=== PATIENT | female | born 1975 | race Caucasian/White ===

== ENCOUNTER 2017-10-19 20:06 | Emergency (ER) | payer MEDICAID ==
[~2017-10-19] VITALS: Ht 157.5 cm; Wt 67.3 kg
[2017-10-19 20:10] VITALS: Ht 157.5 cm; Wt 67.3 kg
[2017-10-19 21:34] LABS: BASOPHILS % 0.1 % (0.0-2.0); EOSINOPHILS # 0.2 10^3/ul (0.0-0.5); EOSINOPHILS % 2.3 % (0.0-7.0); HEMATOCRIT 39.6 % (37.0-47.0); HEMOGLOBIN 13.6 g/dl (12.0-16.0); LYMPHOCYTES # 2.2 10^3/ul (0.8-2.9); LYMPHOCYTES % 30.1 % (15.0-51.0); MEAN CORPUSCULAR HEMOGLOBIN 28.3 pg (29.0-33.0); MEAN CORPUSCULAR HGB CONC 34.3 g/dl (32.0-37.0); MEAN CORPUSCULAR VOLUME 82.3 fl (82.0-101.0); MONOCYTE # 0.5 10^3/ul (0.3-0.9); MONOCYTES % 6.5 % (0.0-11.0); NEUTROPHIL # 4.4 10^3/ul (1.6-7.5); NEUTROPHILS % 60.7 % (39.0-77.0); PLATELET COUNT 276 10^3/UL (140-415); RED BLOOD COUNT 4.81 10^6/ul (4.20-5.40); RED CELL DISTRIBUTION WIDTH 12.6 % (11.5-14.5); WHITE BLOOD COUNT 7.3 10^3/ul (4.8-10.8)
[2017-10-19 21:57] LABS: ADD UMIC YES; UR ASCORBIC ACID NEGATIVE (NEGATIVE); UR BACTERIA FEW /HPF (NONE SEEN); UR BILIRUBIN (Dip) NEGATIVE (NEGATIVE); UR BLOOD (Dip) 1+ mg/dL (NEGATIVE); UR CLARITY CLEAR (CLEAR); UR COLOR YELLOW (YELLOW); UR GLUCOSE (Dip) NEGATIVE (NEGATIVE); UR KETONES (Dip) NEGATIVE (NEGATIVE); UR LEUKOCYTE ESTERASE (Dip) TRACE Leu/ul (NEGATIVE); UR MUCUS FEW /HPF (NONE SEEN); UR NITRITE (Dip) NEGATIVE (NEGATIVE); UR RBC 2 /HPF (0-5); UR SQUAMOUS EPITHELIAL CELL FEW /HPF (FEW); UR TOTAL PROTEIN (Dip) NEGATIVE (NEGATIVE); UR UROBILINOGEN (Dip) NEGATIVE (NEGATIVE)
--- NOTE | 2017-10-19 23:52 | RADRPT ---
PROCEDURE: US OB. CLINICAL INDICATION: No cardiac activity identified on ultrasound at the clinic yesterday. TECHNIQUE: Transabdominal and transvaginal sonographic evaluation of the pelvis using berry scale an d color Doppler imaging was performed. COMPARISON: None available. FINDINGS: There is a single intrauterine with a pole identified. The crown-rump length equals 0.97 cm. The estimated gestational age equals 7 weeks 0 days by ultrasound criteria. No cardiac activity is identified. Uterus: 10.1 x 7.0 x 8.7 cm Right ovary: Not identified. Left ovary: Not identified. No adnexal masses or free fluid. IMPRESSION: 1. Single intrauterine with an estimated gestational age of 7 weeks 0 days by ultrasound criteria and no cardiac activity, highly concerning for failed early . Short interval follow-up ultrasound is recommended. RPTAT: HLBP .Landry Gonzalez MD, Date Time Electronically viewed and signed by .Landry Gonzalez MD, MD on 10/19/2017 23:52 .P/
[2017-10-20] MEDS ORDERED: CEPH-443 PO (00:40)
--- NOTE | 2017-10-20 03:25 | ERD ---
ER Documentation Chief Complaint Chief Complaint abdominal pain x 2 days. states 8 weeks . denies vb HPI 42-year-old female, A1 patient with no significant past medical history is currently and is experiencing slight pelvic pain Reports that she is here for further evaluation because they did not detect any heart tones on ultrasound yesterday. Reports that she feels concerned. States that her last menstruation was on August 22, 2017. States that her CARBON DIOXIDE OPERATOR is Dr. Lopez. Denies any, chills vaginal bleeding, vaginal discharge, nausea, vomiting, diarrhea, chest pain, shortness of breath. ROS All systems reviewed and are negative except as per history of present illness. Medications Home Meds Active Scripts Acetaminophen* (Tylophen*) 500 Mg Capsule, 1 CAP PO Q6H Y for PAIN AND OR ELEVATED TEMP, #30 CAP Prov:KEIKO NAVARRETE PA-C 10/26/17 Hydrocodone/Acetaminophen (Goode 5-325 Tablet) 1 Each Tablet, 1 TAB PO Q6H Y for PAIN, #12 TAB Prov:KEIKO NAVARRETE PA-C 10/26/17 Cephalexin* (Keflex*) 500 Mg Capsule, 500 MG PO QID for 7 Days, CAP Prov:DELANO FERNANDES PA-C 10/20/17 Allergies Allergies: Coded Allergies: No Known Drug Allergies (Verified Allergy, Unknown, 10/19/17) PMhx/Soc Medical and Surgical Hx: pt denies Medical Hx, pt denies Surgical Hx Hx Alcohol Use: No Hx Substance Use: No Hx Tobacco Use: No Smoking Status: Never smoker Physical Exam Vitals Vital Signs Date Time Temp Pulse Resp B/P Pulse Ox O2 Delivery O2 Flow Rate FiO2 10/19/17 20:10 97.9 83 20 123/68 99 Physical Exam Const: Orv-lko-vdgxrustu, well-nourished. In no acute distress. Head: Atraumatic, normocephalic Eyes: Normal Conjunctiva without injection. No purulent discharge. ENT: Normal external ear, nose. Moist oropharynx without tonsillar exudates. Non -erythematous pharynx. Uvula midline. No drooling. No trismus. Neck: No cervical midline tenderness. Full range of motion. No meningismus. No cervical lymphadenopathy. No JVD. Resp: Clear to auscultation bilaterally. No wheezing, rhonchi, rales, or crackles. No accessory muscle use. No retractions. Cardio: Regular rate and rhythm. No murmurs, rubs or gallops. Abd: Soft, nontender, non distended. Normal bowel sounds. No palpable masses. No rebound tenderness. No guarding. Negative McBurney's point. Negative psoas sign. Negative obturator sign. Skin: No petechiae or rashes Back: No midline tenderness. No CVA tenderness. Ext: No cyanosis, or edema. Neur: Awake and alert. Normal gait. Normal coordination. Psych: Normal Mood and Affect Results 24 hrs Laboratory Tests Test 10/19/17 21:00 10/19/17 21:18 Urine Color YELLOW Urine Clarity CLEAR Urine pH 5.0 Urine Specific [place] 1.020 Urine Ketones NEGATIVEmg/dL Urine Nitrite NEGATIVEmg/dL Urine Bilirubin NEGATIVEmg/dL Urine Urobilinogen NEGATIVEmg/dL Urine Leukocyte Esterase TRACELeu/ul Urine Microscopic RBC 2/HPF Urine Microscopic WBC 3/HPF Urine Squamous Epithelial Cells FEW/HPF Urine Bacteria FEW/HPF Urine Mucus FEW/HPF Urine Hemoglobin 1+mg/dL Urine Glucose NEGATIVEmg/dL Urine Total Protein NEGATIVEmg/dl White Blood Count 7.310^3/ul Red Blood Count 4.8110^6/ul Hemoglobin 13.6g/dl Hematocrit 39.6% Mean Corpuscular Volume 82.3fl Mean Corpuscular Hemoglobin 28.3pg Mean Corpuscular Hemoglobin Concent 34.3g/dl Red Cell Distribution Width 12.6% Platelet Count 29807^3/UL Mean Platelet Volume 10.0fl Neutrophils % 60.7% Lymphocytes % 30.1% Monocytes % 6.5% Eosinophils % 2.3% Basophils % 0.1% Nucleated Red Blood Cells % 0.0/100WBC Neutrophils # 4.410^3/ul Lymphocytes # 2.210^3/ul Monocytes # 0.510^3/ul Eosinophils # 0.210^3/ul Basophils # 0.010^3/ul Nucleated Red Blood Cells # 0.010^3/ul Beta HCG, Quantitative 86633.0mIU/ml Procedures/MDM 42-year-old female patient with no significant past medical history presents to the ED complaining of pelvic pain and absence of heart tones on her ultrasound checked yesterday. Patient is afebrile nontoxic appearing. Patient has normal vital signs. An ultrasound, beta-hCG, CBC, type and RH, UA was ordered to evaluate patient. CBC: No evidence of severe infection or anemia Urine: No elevation in nitrites, trace leukocyte esterase, 1+ hematuria. Rh: O positive. No indication for Rhogam at this time. beta Hc PROCEDURE: US OB. CLINICAL INDICATION: No cardiac activity identified on ultrasound at the clinic yesterday. TECHNIQUE: Transabdominal and transvaginal sonographic evaluation of the pelvis using berry scale and color Doppler imaging was performed. COMPARISON: None available. FINDINGS: There is a single intrauterine with a pole identified. The crown-rump length equals 0.97 cm. The estimated gestational age equals 7 weeks 0 days by ultrasound criteria. No cardiac activity is identified. Uterus: 10.1 x 7.0 x 8.7 cm Right ovary: Not identified. Left ovary: Not identified. No adnexal masses or free fluid. IMPRESSION: 1. Single intrauterine with an estimated gestational age of 7 weeks 0 days by ultrasound criteria and no cardiac activity, highly concerning for failed early . Short interval follow-up ultrasound is recommended. PROCEDURE: US OB. CLINICAL INDICATION: No cardiac activity identified on ultrasound at the clinic yesterday. TECHNIQUE: Transabdominal and transvaginal sonographic evaluation of the pelvis using berry scale and color Doppler imaging was performed. COMPARISON: None available. FINDINGS: There is a single intrauterine with a pole identified. The crown-rump length equals 0.97 cm. The estimated gestational age equals 7 weeks 0 days by ultrasound criteria. No cardiac activity is identified. Uterus: 10.1 x 7.0 x 8.7 cm Right ovary: Not identified. Left ovary: Not identified. No adnexal masses or free fluid. IMPRESSION: 1. Single intrauterine with an estimated gestational age of 7 weeks 0 days by ultrasound criteria and no cardiac activity, highly concerning for failed early . Short interval follow-up ultrasound is recommended. She could likely have a early failed there are no heart tones noted. Patient will be treated for a UTI. She was instructed to follow-up with her CARB[employer] DIOXIDE OPERATOR to obtain repeat ultrasound and repeat beta-hCG in 2 days. Low suspicion for symptomatic anemia, ectopic , sepsis, PID, appendicitis, ovarian torsion, tubo-ovarian abscess, surgical abdomen, or other emergent conditions. Patient was educated that there is a risk for threatened . Discharge medications: Keflex Patient to follow up with CARBON DIOXIDE OPERATOR in 2 days for further evaluation and treatment. Patient is to return sooner to the ED for any worsening symptoms. Patient's questions were answered. Patient understood and agreed with discharge plan. Departure Diagnosis: Primary Impression: Absent heart tones Condition: Stable Patient Instructions: Urinary Tract Infections in Women, Possible Miscarriage ( Threatened ) Referrals: [facility] YOU HAVE RECEIVED A MEDICAL SCREENING EXAM AND THE RESULTS INDICATE THAT YOU DO NOT HAVE A CONDITION THAT REQUIRES URGENT TREATMENT IN THE EMERGENCY DEPARTMENT. FURTHER EVALUATION AND TREATMENT OF YOUR CONDITION CAN WAIT UNTIL YOU ARE SEEN IN YOUR DOCTORS OFFICE WITHIN THE NEXT 1-2 DAYS. IT IS YOUR RESPONSIBILITY TO MAKE AN APPOINTMENT FOR FOLOW-UP CARE. IF YOU HAVE A PRIMARY DOCTOR --you should call your primary doctor and schedule an appointment IF YOU DO NOT HAVE A PRIMARY DOCTOR YOU CAN CALL OUR PHYSICIAN REFERRAL HOTLINE AT IF YOU CAN NOT AFFORD TO SEE A PHYSICIAN YOU CAN CHOSE FROM THE FOLLOWING [facility] [address] [facility]. [facility] [address] [facility]. [facility] [address] [facility] [address] [facility] [address] [facility]. [facility]. [address] [facility]. [facility] YOU HAVE RECEIVED A MEDICAL SCREENING EXAM AND THE RESULTS INDICATE THAT YOU DO NOT HAVE A CONDITION THAT REQUIRES URGENT TREATMENT IN THE EMERGENCY DEPARTMENT. FURTHER EVALUATION AND TREATMENT OF YOUR CONDITION CAN WAIT UNTIL YOU ARE SEEN IN YOUR DOCTORS OFFICE WITHIN THE NEXT 1-2 DAYS. IT IS YOUR RESPONSIBILITY TO MAKE AN APPOINTMENT FOR FOLOW-UP CARE. IF YOU HAVE A PRIMARY DOCTOR --you should call your primary doctor and schedule and appointment IF YOU DO NOT HAVE A PRIMARY DOCTOR YOU CAN CALL OUR PHYSICIAN REFERRAL HOTLINE AT . IF YOU CAN NOT AFFORD TO SEE A PHYSICIAN YOU CAN CHOSE FROM THE FOLLOWING [facility] INSTITUTIONS: [facility] [address] [place] [address] [facility] [address] [place] [address] [facility] [address] [place] [address] [facility] URGENT CARE/SPECIALTIES Additional Instructions: seguimiento con CARBON DIOXIDE OPERATOR en 2 manley para la evaluacin y el tratamiento adicionales. Repita el trabajo de boris beta de la hormona de HCG y ultrasonido con CARBON DIOXIDE OPERATOR. Vuelva a urgencias para cualquier sangrado vaginal, fiebre, dolor abdominal, v mitos, etc. DELANO FERNANDES PA-C Oct 20, 2017 03:25
== END 2017-10-20 00:48 | disposition home or self-care (01) ==
LOC: FTE 20:06
DX: O36.8910 Maternal care for other specified fetal problems, first trimester, not applicable or unspecified (principal); R10.2 Pelvic and perineal pain; Z3A.01 Less than 8 weeks gestation of pregnancy
CPT/HCPCS: 36415; 76801; 76817; 81001; 84702; 85025; 86900; 86901; Z7502

== ENCOUNTER 2017-10-25 05:02 | Emergency (ER) | payer MEDICAID ==
[~2017-10-25] VITALS: Ht 152.4 cm; Wt 65.7 kg
[~2017-10-25 05:02] MED LIST: CEPH-443 PO
[2017-10-25 05:05] VITALS: Ht 152.4 cm; Wt 65.7 kg
[2017-10-25] MEDS ORDERED: SOD CHLORIDE 0.9% 1,000 ML IV STA (05:26)
[2017-10-25 06:49] LABS: BASOPHILS % 0.3 % (0.0-2.0); EOSINOPHILS # 0.2 10^3/ul (0.0-0.5); EOSINOPHILS % 2.9 % (0.0-7.0); HEMATOCRIT 40.7 % (37.0-47.0); HEMOGLOBIN 13.8 g/dl (12.0-16.0); LYMPHOCYTES # 1.6 10^3/ul (0.8-2.9); LYMPHOCYTES % 24.4 % (15.0-51.0); MEAN CORPUSCULAR HEMOGLOBIN 27.9 pg (29.0-33.0); MEAN CORPUSCULAR HGB CONC 33.9 g/dl (32.0-37.0); MEAN CORPUSCULAR VOLUME 82.2 fl (82.0-101.0); MEAN PLATELET VOLUME 9.9 fl (7.4-10.4); MONOCYTE # 0.4 10^3/ul (0.3-0.9); MONOCYTES % 5.3 % (0.0-11.0); NEUTROPHIL # 4.4 10^3/ul (1.6-7.5); NEUTROPHILS % 66.9 % (39.0-77.0); PLATELET COUNT 264 10^3/UL (140-415); RED BLOOD COUNT 4.95 10^6/ul (4.20-5.40); RED CELL DISTRIBUTION WIDTH 12.7 % (11.5-14.5); WHITE BLOOD COUNT 6.6 10^3/ul (4.8-10.8)
[2017-10-25 06:53] LABS: ADD UMIC YES; UR ASCORBIC ACID NEGATIVE (NEGATIVE); UR BILIRUBIN (Dip) NEGATIVE (NEGATIVE); UR BLOOD (Dip) 3+ mg/dL (NEGATIVE); UR CLARITY SLIGHTLY CLOUDY (CLEAR); UR COLOR YELLOW (YELLOW); UR GLUCOSE (Dip) NEGATIVE (NEGATIVE); UR KETONES (Dip) NEGATIVE (NEGATIVE); UR LEUKOCYTE ESTERASE (Dip) 1+ Leu/ul (NEGATIVE); UR NITRITE (Dip) NEGATIVE (NEGATIVE); UR RBC 1 /HPF (0-5); UR SPECIFIC GRAVITY (Dip) 1.021 (1.003-1.030); UR SQUAMOUS EPITHELIAL CELL MODERATE /HPF (FEW); UR TOTAL PROTEIN (Dip) NEGATIVE (NEGATIVE); UR UROBILINOGEN (Dip) NEGATIVE (NEGATIVE)
--- NOTE | 2017-10-25 06:54 | RADRPT ---
PROCEDURE: US OB. CLINICAL INDICATION: Vaginal bleeding in . TECHNIQUE: Transabdominal and endovaginal imaging of the gravid uterus is available for review COMPARISON: US 10/19/2017; US PELVIS 10/19/2017 FINDINGS: There is a single intrauterine with a crown-rump length of 1.06 cm, giving an estimated ge stational age of 7 weeks 0 days by ultrasound criteria. No heart tones are detected. No subc horionic hemorrhage is identified. The ovaries are unremarkable. IMPRESSION: Single intrauterine with an estimated gestational age of 7 weeks 0 days by ultrasound crit eria. No heart tones are detected. There has been no interval growth when compared to the ross or examination. Findings are compatible with early failed . RPTAT: HH .Lilo Pearson MD, MD Date Time Electronically viewed and signed by .Lilo Pearson MD, on 10/25/2017 05:50 .G/
[2017-10-25 07:18] LABS: INR 0.97
[2017-10-25 07:19] LABS: PARTIAL THROMBOPLASTIN TIME 31.2 Sec (25.0-35.0)
--- NOTE | 2017-10-25 07:42 | ERD ---
ER Documentation Chief Complaint Chief Complaint c/o VB x 1 day. (+) 8 weeks . (+) nausea. HPI This 42-year-old female presents with vaginal bleeding for last day. She has minimal cramps. She denies clots or tissue. She was seen 1 week ago for some mild pain noted to have a 7 week without appreciable heart tones. She has a appointment with her OB today. She denies any fevers, vomiting, shortness of breath. ROS All systems reviewed and are negative except as per history of present illness. Medications Home Meds Active Scripts Cephalexin* (Keflex*) 500 Mg Capsule, 500 MG PO QID for 7 Days, CAP Prov:DELANO FERNANDES PA-C 10/20/17 Allergies Allergies: Coded Allergies: No Known Drug Allergies (Verified Allergy, Unknown, 10/19/17) PMhx/Soc Medical and Surgical Hx: pt denies Medical Hx, pt denies Surgical Hx Hx Alcohol Use: No Hx Substance Use: No Hx Tobacco Use: No Smoking Status: Never smoker Physical Exam Vitals Vital Signs Date Time Temp Pulse Resp B/P Pulse Ox O2 Delivery O2 Flow Rate FiO2 10/25/17 05:05 97.6 68 18 107/69 98 Physical Exam Const: [] Alert, ovj-yzd-cigdxmzcr. Head: Atraumatic Eyes: Normal Conjunctiva ENT: Normal External Ears, Nose and Mouth. Neck: Full range of motion..~ No meningismus. Resp: Clear to auscultation bilaterally Cardio: Regular rate and rhythm, no murmurs Abd: Soft, non tender, non distended. Normal bowel sounds Skin: No petechiae or rashes Back: No midline or flank tenderness Ext: No cyanosis, or edema Neur: Awake and alert Psych: Normal Mood and Affect Result Diagram: 10/25/17 0558 Results 24 hrs Laboratory Tests Test 10/25/17 05:33 10/25/17 05:58 Urine Color YELLOW Urine Clarity SLIGHTLY CLOUDY Urine pH 7.0 Urine Specific [place] 1.021 Urine Ketones NEGATIVEmg/dL Urine Nitrite NEGATIVEmg/dL Urine Bilirubin NEGATIVEmg/dL Urine Urobilinogen NEGATIVEmg/dL Urine Leukocyte Esterase 1+Cruzito/ul Urine Microscopic RBC 1/HPF Urine Microscopic WBC 6/HPF Urine Squamous Epithelial Cells MODERATE/HPF Urine Hemoglobin 3+mg/dL Urine Glucose NEGATIVEmg/dL Urine Total Protein NEGATIVEmg/dl White Blood Count 6.610^3/ul Red Blood Count 4.9510^6/ul Hemoglobin 13.8g/dl Hematocrit 40.7% Mean Corpuscular Volume 82.2fl Mean Corpuscular Hemoglobin 27.9pg Mean Corpuscular Hemoglobin Concent 33.9g/dl Red Cell Distribution Width 12.7% Platelet Count 61742^3/UL Mean Platelet Volume 9.9fl Neutrophils % 66.9% Lymphocytes % 24.4% Monocytes % 5.3% Eosinophils % 2.9% Basophils % 0.3% Nucleated Red Blood Cells % 0.0/100WBC Neutrophils # 4.410^3/ul Lymphocytes # 1.610^3/ul Monocytes # 0.410^3/ul Eosinophils # 0.210^3/ul Basophils # 0.010^3/ul Nucleated Red Blood Cells # 0.010^3/ul Prothrombin Time 13.0Sec Prothrombin Time Ratio 1.0 INR International Normalized Ratio 0.97 Activated Partial Thromboplast Time 31.2Sec Beta HCG, Quantitative 04069.0mIU/ml Current Medications Medications (Trade) Dose Ordered Sig/Sharmila Route PRN Reason Start Time Stop Time Status Last Admin Dose Admin Sodium Chloride (NS) 1,000 ml @ 1,000 mls/hr Q1H STAT IV 10/25/17 05:26 10/25/17 06:25 DC 10/25/17 06:09 Procedures/MDM Patient is Rh+. Quantitative hCG is presently 12,000 which is decreased from 1 week ago. Urine shows no significant acute findings. Pelvic ultrasound shows 7 week intrauterine without appreciable heart tones and no interval growth in the last week since prior ultrasound. Patient has signs and symptoms of demise or missed . She has good OB follow-up today. She will be discharged home with copies of her reports instructions to keep her appointment today. She should otherwise return for fevers, vomiting, worsening pain, new worsening symptoms or primary care doctor as directed today. Is no signs of ectopic , or signs to suggest appendicitis, tubo-ovarian abscess, additional emergent causes of lower abdominal pain. Departure Diagnosis: Primary Impression: Vaginal bleeding in patient at less than 20 weeks ges... Additional Impression: Absent heart tones Condition: Stable Patient Instructions: Bleeding During Early , Missed Miscarriage Additional Instructions: daniel rand doctor hoy,or regresa para mas o nueva simptomas. FAWAD RAJAN MD Oct 25, 2017 07:42
[2017-10-25 08:00] VITALS: BP 112/66; PULSE 68; RESP 20; TEMP 98
[2017-10-26] MEDS ORDERED: ACET500C5 PO (13:11)
[2017-10-26] MEDS ORDERED: HYDR-906 PO (13:11)
== END 2017-10-25 08:02 | disposition home or self-care (01) ==
LOC: FTE 05:02
DX: O20.9 Hemorrhage in early pregnancy, unspecified (principal); O35.8XX0 Maternal care for other (suspected) fetal abnormality and damage, not applicable or unspecified; Z3A.01 Less than 8 weeks gestation of pregnancy
CPT/HCPCS: 36415; 76801; 76817; 81001; 84702; 85025; 85610; 85730; 86900; 86901; J7030; Z7502

== ENCOUNTER 2017-10-25 10:17 | Emergency (ER) | payer MEDICAID ==
[~2017-10-25] VITALS: Ht 172.7 cm; Wt 66.5 kg
[2017-10-25 10:21] VITALS: Ht 172.7 cm; Wt 66.5 kg
--- NOTE | 2017-10-25 10:59 | ERD ---
ER Documentation Chief Complaint Chief Complaint Sent from OB to HPI This 42-year-old female presents with history of confirmed missed of 7 weeks with 2 visits over the last week.. She was seen by me earlier today for some spotting without hemorrhaging or significant pain or fevers. I referred her back to her care provider covered by [employer]icha for scheduling of elective D&C. Patient states they referred her to other clinics to schedule a D &C. They called those clinics and were apparently told they do not do the procedure were or they are closed. She returns here to the ER for further information to resolve her situation. She continues to have intermittent spotting without hemorrhaging, clots, tissue, or significant pain and no fevers. ROS All systems reviewed and are negative except as per history of present illness. Medications Home Meds Active Scripts Cephalexin* (Keflex*) 500 Mg Capsule, 500 MG PO QID for 7 Days, CAP Prov:DELANO FERNANDES-Ira 10/20/17 Allergies Allergies: Coded Allergies: No Known Drug Allergies (Verified Allergy, Unknown, 10/19/17) PMhx/Soc Hx Alcohol Use: No Hx Substance Use: No Hx Tobacco Use: No Physical Exam Vitals Vital Signs Date Time Temp Pulse Resp B/P Pulse Ox O2 Delivery O2 Flow Rate FiO2 10/25/17 10:21 98.9 73 20 134/61 97 Physical Exam Const: [] Head: Atraumatic Eyes: Normal Conjunctiva ENT: Normal External Ears, Nose and Mouth. Neck: Full range of motion..~ No meningismus. Resp: Clear to auscultation bilaterally Cardio: Regular rate and rhythm, no murmurs Abd: Soft, non tender, non distended. Normal bowel sounds Skin: No petechiae or rashes Back: No midline or flank tenderness Ext: No cyanosis, or edema Neur: Awake and alert Psych: Normal Mood and Affect Procedures/MDM Call was placed to her clinics supervising OB provider Dr. holcomb. He confirmed that he can do the D&C at her care clinic. I called her clinic again who is in contact with the supervising OB provider. They will contact the patient to schedule a D&C at her original care provider. Patient was stable and amatory throughout the ED course without evidence of septic , hemorrhaging, cardiovascular compromise, additional complications of her missed . Patient was advised to return for heavy bleeding, dizziness, syncope, fevers, new or worsening symptoms. Departure Diagnosis: Primary Impression: Missed Additional Impression: Absent heart tones Condition: Stable Patient Instructions: Missed Miscarriage Additional Instructions: I have spoken with your OB provider. Clinic should be contact you to schedule procedure. Recheck for worsening bleeding, fainting, pain, fevers otherwise with clinic. FAWAD RAJAN MD Oct 25, 2017 10:59
[2017-10-26] MEDS ORDERED: HYDR-906 PO (13:11)
[2017-10-26] MEDS ORDERED: ACET500C5 PO (13:11)
== END 2017-10-25 11:07 | disposition home or self-care (01) ==
LOC: FTE 10:17
DX: O02.1 Missed abortion (principal)
CPT/HCPCS: 99282

== ENCOUNTER 2017-10-26 09:57 | Emergency (ER) | payer MEDICAID ==
[~2017-10-26] VITALS: Ht 160 cm; Wt 66.0 kg
[2017-10-26 10:02] VITALS: Ht 160 cm; Wt 66.0 kg
[2017-10-26] MEDS ORDERED: HYDROCODONE/APAP (5/325) TAB PO ONE (11:00)
[2017-10-26 11:16] LABS: BASOPHILS % 0.2 % (0.0-2.0); EOSINOPHILS # 0.1 10^3/ul (0.0-0.5); HEMATOCRIT 39.6 % (37.0-47.0); HEMOGLOBIN 13.3 g/dl (12.0-16.0); LYMPHOCYTES # 1.8 10^3/ul (0.8-2.9); LYMPHOCYTES % 14.4 % (15.0-51.0); MEAN CORPUSCULAR HEMOGLOBIN 27.7 pg (29.0-33.0); MEAN CORPUSCULAR HGB CONC 33.6 g/dl (32.0-37.0); MEAN CORPUSCULAR VOLUME 82.3 fl (82.0-101.0); MEAN PLATELET VOLUME 9.6 fl (7.4-10.4); MONOCYTE # 0.7 10^3/ul (0.3-0.9); MONOCYTES % 5.2 % (0.0-11.0); PLATELET COUNT 258 10^3/UL (140-415); RED BLOOD COUNT 4.81 10^6/ul (4.20-5.40); RED CELL DISTRIBUTION WIDTH 12.7 % (11.5-14.5); WHITE BLOOD COUNT 12.6 10^3/ul (4.8-10.8)
--- NOTE | 2017-10-26 11:40 | RADRPT ---
PROCEDURE: US Pelvis. CLINICAL INDICATION: Pelvic pain, vaginal bleeding TECHNIQUE: Multiple sonographic images of the pelvis were obtained utilizing a transabdominal and endovaginal technique. The images were reviewed on a PACS workstation. COMPARISON: October 25, 2017 FINDINGS: The uterus is anteverted and measures 11 x 7.4 x 6 cm. The previously seen intrauterine is no longer present, and is compatible with a spontaneous . There is no evidence for free flu id. The right ovary has a normal echotexture and measures 2.4 x 1.5 x 1.3 cm . The left ovary was n ot visualized. There are no findings of ectopic . No adnexal masses are noted. IMPRESSION: Unremarkable pelvic ultrasound. Previously seen intrauterine is no longer present, and is compatible with spontaneous . No findings of ectopic . No findings of retained prod ucts of conception. RPTAT: EE .Desiree Silvestre MD, MD Date Time Electronically viewed and signed by .Desiree Silvestre MD, on 10/26/2017 11:40 .F/
--- NOTE | 2017-10-26 12:24 | ERD ---
ER Documentation Chief Complaint Chief Complaint vag bleed since yesterday , 8 weeks preg HPI This 42-year-old female who presents the emergency department today complaining of vaginal bleeding and passing clots and pelvic pain. States she was seen here yesterday. States she has not taken a medication for pain. States that the pain is worse. Denies any fevers or chills, dysuria. ROS All systems reviewed and are negative except as per history of present illness. Medications Home Meds Active Scripts Acetaminophen* (Tylophen*) 500 Mg Capsule, 1 CAP PO Q6H Y for PAIN AND OR ELEVATED TEMP, #30 CAP Prov:KEIKO NAVARRETE PA-C 10/26/17 Hydrocodone/Acetaminophen ([place] 5-325 Tablet) 1 Each Tablet, 1 TAB PO Q6H Y for PAIN, #12 TAB Prov:KEIKO NAVARRETE PA-C 10/26/17 Cephalexin* (Keflex*) 500 Mg Capsule, 500 MG PO QID for 7 Days, CAP Prov:DELANO FERNANDES PA-C 10/20/17 Allergies Allergies: Coded Allergies: No Known Drug Allergies (Verified Allergy, Unknown, 10/19/17) PMhx/Soc Hx Alcohol Use: No Hx Substance Use: No Hx Tobacco Use: No Physical Exam Vitals Vital Signs Date Time Temp Pulse Resp B/P Pulse Ox O2 Delivery O2 Flow Rate FiO2 10/26/17 10:02 97.7 98 18 133/63 96 Physical Exam Const: sitting in wheelchair, NAD Head: Atraumatic Eyes: Normal Conjunctiva ENT: Normal External Ears, Nose and Mouth. Neck: Full range of motion..~ No meningismus. Resp: Clear to auscultation bilaterally Cardio: Regular rate and rhythm, no murmurs Abd: Soft, lower pelvic pain non distended. Normal bowel sounds. NO tenderness at McBurneys : Pelvic Exam with multiple clots of blood that were removed. Cervix slightly open. Skin: No petechiae or rashes Back: No midline or flank tenderness Ext: No cyanosis, or edema Neur: Awake and alert Psych: Normal Mood and Affect Result Diagram: 10/26/17 1106 Results 24 hrs Laboratory Tests Test 10/26/17 11:06 White Blood Count 12.610^3/ul Red Blood Count 4.8110^6/ul Hemoglobin 13.3g/dl Hematocrit 39.6% Mean Corpuscular Volume 82.3fl Mean Corpuscular Hemoglobin 27.7pg Mean Corpuscular Hemoglobin Concent 33.6g/dl Red Cell Distribution Width 12.7% Platelet Count 84664^3/UL Mean Platelet Volume 9.6fl Neutrophils % 79.0% Lymphocytes % 14.4% Monocytes % 5.2% Eosinophils % 1.0% Basophils % 0.2% Nucleated Red Blood Cells % 0.0/100WBC Neutrophils # 10.010^3/ul Lymphocytes # 1.810^3/ul Monocytes # 0.710^3/ul Eosinophils # 0.110^3/ul Basophils # 0.010^3/ul Nucleated Red Blood Cells # 0.010^3/ul Beta HCG, Quantitative 6983.8mIU/ml Current Medications Medications (Trade) Dose Ordered Sig/Sharmila Route PRN Reason Start Time Stop Time Status Last Admin Dose Admin Acetaminophen/ Hydrocodone Bitart ([place] (5/325)) 1 tab ONCE ONCE PO 10/26/17 11:00 10/26/17 11:01 DC 10/26/17 11:11 DIAGNOSTIC IMAGING REPORT Patient: YENNY VILA : 1975 Age: 42 Sex: F MR #: [id number] DOS: 10/26/17 1046 Ordering MD: KEIKO NAVARRETE PA-C Location: [facility] Room/Bed: PROCEDURE: US Pelvis. CLINICAL INDICATION: Pelvic pain, vaginal bleeding TECHNIQUE: Multiple sonographic images of the pelvis were obtained utilizing a transabdominal and endovaginal technique. The images were reviewed on a PACS workstation. COMPARISON: October 25, 2017 FINDINGS: The uterus is anteverted and measures 11 x 7.4 x 6 cm. The previously seen intrauterine is no longer present, and is compatible with a spontaneous . There is no evidence for free fluid. The right ovary has a normal echotexture and measures 2.4 x 1.5 x 1.3 cm . The left ovary was not visualized. There are no findings of ectopic . No adnexal masses are noted. IMPRESSION: Unremarkable pelvic ultrasound. Previously seen intrauterine is no longer present, and is compatible with spontaneous . No findings of ectopic . No findings of retained products of conception. RPTAT: EE .Desiree Silvestre MD, Date Time Electronically viewed and signed by .Desiree Silvestre MD, on 10/26/2017 11:40 .F/ CC: KEIKO NAVARRETE PA-C Procedures/MDM This 42-year-old female who presents the emergency department today complaining of vaginal bleeding. Patient had indicated that she was approximately 8 weeks . Upon review of patient's medical record she was seen here 2 times yesterday and once earlier in the week same symptoms. Patient was to have a follow-up at her clinic with Dr. Lopez for a D&C. Given that she returned today because she has passing a lot of clots and has a lot of pain. Patient did not take any medication for pain at home because "she does not like taking medication. Patient complains I did repeat patient's beta quant and ultrasound and CBC CBC shows a mildly elevated white blood cell count of 12.6 possibly stress reaction. Patient is afebrile and otherwise well-appearing. I have suspicion for sepsis, septic . Hemoglobin is stable at 13.3. She is not anemic. Platelets are within normal limits. Quant hCG is 6983.8. This is down yesterday from 12,000 Ultrasound shows an unremarkable pelvic ultrasound. The previously seen intrauterine is no longer present and compatible with a spontaneous . There is no evidence for free fluid. There are no findings of ectopic . There are no adnexal masses. No findings of retained products of conception. Explained this to the patient Ultrasound yesterday showed a IUP of 7 weeks with no heart tones Ultrasound and beta quant is trending down today and there is no evidence of an IUP at this time. Likely spontaneous . I have explained this to the patient. I did do a vaginal exam and did remove multiple clots of blood and tissue. Tissue was sent to pathology. Symptoms at this time is consistent with vaginal bleeding in early and spontaneous . Was given [place] here in the emergency department and she reported feeling significantly better. Patient will be given a prescription for [place] for home as well as Tylenol. She was instructed to keep her appt with Dr. Lopez next week. At this time the patient is stable for discharge and outpatient management. Patient should follow up with their PCP in the next 1-2 days. They may return to the emergency department sooner for any persistent or worsening of symptoms. Patient understood and agreed with the plan. Discussed the patient with Dr. Holt and he is in agreement with the plan . Departure Diagnosis: Primary Impression: Vaginal bleeding in patient at less than 20 weeks gestation Additional Impression: Spontaneous Condition: KEIKO Arana PA-C Oct 26, 2017 12:24
[2017-10-26] MEDS ORDERED: HYDR-906 PO (13:11)
[2017-10-26] MEDS ORDERED: ACET500C5 PO (13:11)
[2017-10-26 13:46] VITALS: BP 98/53; PULSE 60; RESP 16; TEMP 98.1
== END 2017-10-26 14:16 | disposition home or self-care (01) ==
LOC: FTE 09:57
DX: O03.9 Complete or unspecified spontaneous abortion without complication (principal); R10.2 Pelvic and perineal pain
CPT/HCPCS: 36415; 76801; 76817; 84702; 85025; Z7502; Z7610

== ENCOUNTER 2017-10-29 11:21 | Emergency (ER) | payer MEDICAID ==
[~2017-10-29] VITALS: Ht 152.4 cm; Wt 66.0 kg
[~2017-10-29 11:21] MED LIST changes: +ACET500C5 PO; +HYDR-906 PO
[2017-10-29 11:27] VITALS: Ht 152.4 cm; Wt 66.0 kg
[2017-10-29] MEDS ORDERED: HYDROCODONE/APAP (5/325) TAB PO ONE (13:30)
[2017-10-29 13:44] LABS: BASOPHILS % 0.4 % (0.0-2.0); EOSINOPHILS # 0.2 10^3/ul (0.0-0.5); EOSINOPHILS % 2.4 % (0.0-7.0); HEMATOCRIT 39.2 % (37.0-47.0); HEMOGLOBIN 13.4 g/dl (12.0-16.0); LYMPHOCYTES # 1.9 10^3/ul (0.8-2.9); LYMPHOCYTES % 28.7 % (15.0-51.0); MEAN CORPUSCULAR HEMOGLOBIN 28.3 pg (29.0-33.0); MEAN CORPUSCULAR HGB CONC 34.2 g/dl (32.0-37.0); MEAN CORPUSCULAR VOLUME 82.7 fl (82.0-101.0); MEAN PLATELET VOLUME 10.1 fl (7.4-10.4); MONOCYTE # 0.4 10^3/ul (0.3-0.9); MONOCYTES % 5.5 % (0.0-11.0); NEUTROPHIL # 4.2 10^3/ul (1.6-7.5); NEUTROPHILS % 62.7 % (39.0-77.0); PLATELET COUNT 264 10^3/UL (140-415); RED BLOOD COUNT 4.74 10^6/ul (4.20-5.40); RED CELL DISTRIBUTION WIDTH 12.8 % (11.5-14.5); WHITE BLOOD COUNT 6.7 10^3/ul (4.8-10.8)
--- NOTE | 2017-10-29 14:04 | RADRPT ---
PROCEDURE: US Pelvis. CLINICAL INDICATION: Vaginal bleeding TECHNIQUE: Transabdominal and transvaginal pelvic ultrasound are performed. COMPARISON: 10/26/2017 FINDINGS: The uterus is normal in echogenicity and anteverted in orientation. The uterus measures 10.1 x 5.8 x 6.3 cm. No focal fibroids are identified. A secretory endometrium is identified measuring 1.3 cm . No intrauterine seen.. The cervix is normal in appearance. Right ovary is visualized and is normal in appearance. Left ovary is not seen. There are no complexe d adnexal masses. Normal color flow is noted right ovary. The right ovary measures 2.2 x 1.4 x 1.4 cm There is no free fluid in the pelvis IMPRESSION: 1. No intrauterine identified. 2. Secretory endometrial lining measuring 1.3 cm. 3. Uterus and right ovary grossly unremarkable. 4. Left ovary not visualized. There are no complex or solid adnexal masses. 5. No free fluid in the pelvis RPTAT: .Lion Rizvi MD, Date Time Electronically viewed and signed by .Lion Rizvi MD, on 10/29/2017 14:04 .W/
--- NOTE | 2017-10-29 14:12 | ERD ---
ER Documentation Chief Complaint Chief Complaint Sent by PCP for DNC HPI This is a 42 year old female who present to the emergency department today after being sent here by her primary HEAD CHARGER Dr. Lopez for a repeat beta quant and ultrasound. Patient states that she has taken Tylenol but not the other medication she had for pain because the Tylenol is working for her. States that she saw him in clinic today and he did a pelvic exam and she has had increased pain since that time. States that she has very light bleeding. States she is confused because she thought she was was to have a procedure in his office last week. Denies any fevers or chills, dysuria ROS All systems reviewed and are negative except as per history of present illness. Medications Home Meds Active Scripts Naproxen* (Naprosyn*) 500 Mg Tablet, 500 MG PO BID Y for PAIN AND/OR INFLAMMATION, #30 TAB Prov:KEIKO NAVARRETE PA-C 10/29/17 Metronidazole* (Flagyl*) 500 Mg Tablet, 500 MG PO BID for 7 Days, TAB Prov:KEIOK NAVARRETE PA-C 10/29/17 Doxycycline Hyclate* (Doxycycline Hyclate*) 100 Mg Tablet.dr 100 MG PO BID for 7 Days, TAB Prov:KEIKO NAVARRETE PA-C 10/29/17 Acetaminophen* (Tylophen*) 500 Mg Capsule, 1 CAP PO Q6H Y for PAIN AND OR ELEVATED TEMP, #30 CAP Prov:KEIKO NAVARRETE PA-C 10/26/17 Hydrocodone/Acetaminophen ([place] 5-325 Tablet) 1 Each Tablet, 1 TAB PO Q6H Y for PAIN, #12 TAB Prov:KEIKO NAVARRETE PA-C 10/26/17 Cephalexin* (Keflex*) 500 Mg Capsule, 500 MG PO QID for 7 Days, CAP Prov:DELANO FERNANDES PA-C 10/20/17 Allergies Allergies: Coded Allergies: No Known Drug Allergies (Verified Allergy, Unknown, 10/19/17) PMhx/Soc Medical and Surgical Hx: pt denies Medical Hx, pt denies Surgical Hx Hx Alcohol Use: No Hx Substance Use: No Hx Tobacco Use: No Smoking Status: Never smoker Physical Exam Vitals Vital Signs Date Time Temp Pulse Resp B/P Pulse Ox O2 Delivery O2 Flow Rate FiO2 10/29/17 16:00 98.4 70 18 134/71 99 10/29/17 11:27 98.7 72 19 149/77 100 Physical Exam Const: NAD Head: Atraumatic Eyes: Normal Conjunctiva ENT: Normal External Ears, Nose and Mouth. Neck: Full range of motion..~ No meningismus. Resp: Clear to auscultation bilaterally Cardio: Regular rate and rhythm, no murmurs Abd: Soft mild pelvic tenderness, non distended. Normal bowel sounds. No tenderness at McBurney's Skin: No petechiae or rashes Back: No midline or flank tenderness Ext: No cyanosis, or edema Neur: Awake and alert Psych: Normal Mood and Affect Result Diagram: 10/29/17 1315 Results 24 hrs Laboratory Tests Test 10/29/17 13:15 White Blood Count 6.710^3/ul Red Blood Count 4.7410^6/ul Hemoglobin 13.4g/dl Hematocrit 39.2% Mean Corpuscular Volume 82.7fl Mean Corpuscular Hemoglobin 28.3pg Mean Corpuscular Hemoglobin Concent 34.2g/dl Red Cell Distribution Width 12.8% Platelet Count 15184^3/UL Mean Platelet Volume 10.1fl Neutrophils % 62.7% Lymphocytes % 28.7% Monocytes % 5.5% Eosinophils % 2.4% Basophils % 0.4% Nucleated Red Blood Cells % 0.0/100WBC Neutrophils # 4.210^3/ul Lymphocytes # 1.910^3/ul Monocytes # 0.410^3/ul Eosinophils # 0.210^3/ul Basophils # 0.010^3/ul Nucleated Red Blood Cells # 0.010^3/ul Beta HCG, Quantitative 614.0mIU/ml Current Medications Medications (Trade) Dose Ordered Sig/Sharmila Route PRN Reason Start Time Stop Time Status Last Admin Dose Admin Acetaminophen/ Hydrocodone Bitart ([place] (5/325)) 1 tab ONCE ONCE PO 10/29/17 13:30 10/29/17 13:31 DC 10/29/17 13:11 DIAGNOSTIC IMAGING REPORT Patient: YENNY VILA : 1975 Age: 42 Sex: F MR #: [id number] DOS: 10/29/17 1306 Ordering MD: KEIKO NAVARRETE PA-C Location: [facility] Room/Bed: PROCEDURE: US Pelvis. CLINICAL INDICATION: Vaginal bleeding TECHNIQUE: Transabdominal and transvaginal pelvic ultrasound are performed. COMPARISON: 10/26/2017 FINDINGS: The uterus is normal in echogenicity and anteverted in orientation. The uterus measures 10.1 x 5.8 x 6.3 cm. No focal fibroids are identified. A secretory endometrium is identified measuring 1.3 cm. No intrauterine seen.. The cervix is normal in appearance. Right ovary is visualized and is normal in appearance. Left ovary is not seen. There are no complexed adnexal masses. Normal color flow is noted right ovary. The right ovary measures 2.2 x 1.4 x 1.4 cm There is no free fluid in the pelvis IMPRESSION: 1. No intrauterine identified. 2. Secretory endometrial lining measuring 1.3 cm. 3. Uterus and right ovary grossly unremarkable. 4. Left ovary not visualized. There are no complex or solid adnexal masses. 5. No free fluid in the pelvis RPTAT: HH .Lion Rizvi MD, MD Date Time Electronically viewed and signed by .Lion Rizvi MD, on 10/29/2017 14:04 .W/ CC: KEIKO ANVARRETE PA-C Procedures/MDM This is a 42-year-old female who presents the emergency department today after being sent by her primary HEAD CHARGER Dr. Lopez for repeat beta quant and ultrasound. Patient was confused because she thought she was supposed to get a procedure for a D&C done at the doctor's office. This is the patient's fifth visit to this emergency department for this same complaint. I placed a call to Dr. Lopez who indicated that the patient went to his clinic today and patient stated that she was there for procedure and was told that she was going to have a procedure. He explained to them that her last ultrasound showed no evidence of IUP and her hormone levels were going down. Patient indicates that she is confused. I did repeat a beta quant and ultrasound today as per the request of Dr. Lopez. He requested that I call him back after the results had been completed. He did indicate that she only had some very slight bleeding when he did a pelvic exam on her today. Laboratory workup shows no elevated white blood cell count. She is not anemic. Platelets are within normal limits. Beta Quant HCG 614 Ultrasound shows no intrauterine identified. There is secretory endometrial lining measuring 1.3 cm. The uterus and right ovary are grossly unremarkable. There are no complex adnexal masses. There is normal color flow in the right ovary. There is no free fluid in the pelvis. Patient was given [place] here in the emergency department. All results were explained to the patient. It was explained to her 2 times that she no longer has a and her hormone level continues to go down and there is no need for a D&C at this time. Patient was instructed to take [place] for pain that she was given. I also gave her prescription for Naprosyn. Dr. Goff asked that the patient be given Flagyl and doxy for the next week for any possible infection. He would like to see her in 1 week. He did examine her today and he does not feel that she needs a CT scan at this time. I also explained that they were unable to see the left ovary. They were unable to see the left ovary on her last ultrasound as well. He indicated he was not concerned about that and does not feel that she has ovarian torsion, tubo-ovarian abscess. I have instructed the patient to call today to make an appointment for next week. Patient is afebrile and otherwise well-appearing. Patient has no tenderness at McBurney's. I have low suspicion for acute surgical abdomen. At this time the patient is stable for discharge and outpatient management. Patient should follow up with their PCP in the next 1-2 days. They may return to the emergency department sooner for any persistent or worsening of symptoms. Patient and understood and agreed with the plan. Departure Diagnosis: Primary Impression: Encounter for laboratory test Condition: KEIKO Arana PA-C Oct 29, 2017 14:11
[2017-10-29] MEDS ORDERED: DOXY100T20 PO (15:54)
[2017-10-29] MEDS ORDERED: METR500T PO (15:55)
[2017-10-29] MEDS ORDERED: NAPR-260 PO (15:56)
[2017-10-29 16:00] VITALS: BP 134/71; PULSE 70; RESP 18; TEMP 98.4
== END 2017-10-29 16:00 | disposition home or self-care (01) ==
LOC: FTE 11:21
DX: O20.9 Hemorrhage in early pregnancy, unspecified (principal); R10.2 Pelvic and perineal pain; Z3A.08 8 weeks gestation of pregnancy
CPT/HCPCS: 76801; 76817; 84702; 85025; Z7502; Z7610